=== PATIENT | male | born 1965 | race Caucasian/White ===

== ENCOUNTER → 2020-11-10 | Outpatient (CLI) | payer BC ==
[~2020-11-10] MED LIST: K-DUR TAB 20 M20 MEQ PO; LASIX20 MG PO
[2020-11-10 10:24] LABS: HEMOGLOBIN 16.7 gm/dl (14.0-17.5); RED BLOOD COUNT 5.08 M/UL (4.20-5.50)
[2020-11-10 10:45] LABS: BUN/CREATININE RATIO 13 (0-10)
[2020-11-11 11:14] LABS: CREATININE, URINE 103.2 mg/dL (Not Estab.)
== END ==
LOC: LAB 09:28
PROVIDERS: Family Medicine
DX: I10 Essential (primary) hypertension (principal); R73.03 Prediabetes
CPT/HCPCS: 80053; 80061; 82043; 82570; 84439; 84443; 84481; 85025

== ENCOUNTER 2020-12-04 14:54 | Emergency (ER) | payer BC ==
[2020-12-04] MEDS ORDERED: K-DUR TAB 20 M20 MEQ PO (18:04)
[2020-12-04] MEDS ORDERED: LASIX20 MG PO (18:04)
== END 2020-12-04 18:44 | disposition home or self-care (01) ==
LOC: ER1 14:54
DX: R60.0 Localized edema (principal); I10 Essential (primary) hypertension; F17.290 Nicotine dependence, other tobacco product, uncomplicated
CPT/HCPCS: 99284

== ENCOUNTER → 2021-01-19 | Outpatient (CLI) | payer BC ==
[~2021-01-19] MED LIST changes: +BENICAR 20 MG T20 MG PO; +HYDROCODONE-AC1 EAC1 PO; +TESTOSTERO200 MG/1 M IM
== END ==
LOC: LAB 12:40
PROVIDERS: Internal Medicine Rheumatology
DX: R74.8 Abnormal levels of other serum enzymes (principal); D75.89 Other specified diseases of blood and blood-forming organs
CPT/HCPCS: 36415; 82175; 82607; 82746; 83655; 83825

== ENCOUNTER → 2021-01-22 | Day surgery (SDC) | payer BC | END | disposition home or self-care (01) | LOC: OR 05:55 | PROVIDERS: Surgery | PROC: 0KBR0ZX Excision of Left Upper Leg Muscle, Open Approach, Diagnostic (ICD-10-PCS; principal; 2021-01-22 07:30) | DX: M62.562 Muscle wasting and atrophy, not elsewhere classified, left lower leg (principal); I10 Essential (primary) hypertension; G89.4 Chronic pain syndrome; M54.9 Dorsalgia, unspecified; M86.9 Osteomyelitis, unspecified; E07.9 Disorder of thyroid, unspecified; E83.51 Hypocalcemia; G47.33 Obstructive sleep apnea (adult) (pediatric); G47.00 Insomnia, unspecified; M17.10 Unilateral primary osteoarthritis, unspecified knee; M19.049 Primary osteoarthritis, unspecified hand; R91.1 Solitary pulmonary nodule; F17.290 Nicotine dependence, other tobacco product, uncomplicated; E66.01 Morbid (severe) obesity due to excess calories; Z68.36 Body mass index [BMI] 36.0-36.9, adult; Z20.822 Contact with and (suspected) exposure to COVID-19; Z79.899 Other long term (current) drug therapy; Z79.52 Long term (current) use of systemic steroids; Z87.442 Personal history of urinary calculi | CPT/HCPCS: J0690; J1100; J2001; J2250; J2405; J2704; J3010; J7030; J7120 ==

== ENCOUNTER → 2021-02-18 | Outpatient (CLI) | payer BC ==
[2021-02-18 11:17] LABS: HEMOGLOBIN 15.6 gm/dl (14.0-17.5); RED BLOOD COUNT 4.99 M/UL (4.20-5.50); WHITE BLOOD COUNT 6.2 K/UL (4.5-11.0)
[2021-02-20 12:14] LABS: ANTIHISTONE ANTIBODIES 1.2 Units (0.0-0.9)
== END ==
LOC: LAB 10:08
PROVIDERS: Internal Medicine Rheumatology
DX: R76.8 Other specified abnormal immunological findings in serum (principal); M62.81 Muscle weakness (generalized)
CPT/HCPCS: 36415; 82550; 83516; 85025; 86038; 86235